=== PATIENT | male | born 1950 | race Caucasian/White ===

== ENCOUNTER 2016-11-18 11:04 | Emergency (ER) | payer OTHER ==
[~2016-11-18] VITALS: Ht 182.9 cm; Wt 80.0 kg
[~2016-11-18 11:04] MED LIST: CYCL-36 PO; DICL75 PO; Z.0.NO CURRENT MEDS
[2016-11-18 11:13] VITALS: BP 146/76; PULSE 76; RESP 20; TEMP 97.6; O2SAT 97
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
== END 2016-11-19 13:13 | disposition home or self-care (01) ==
LOC: NETRI 11:04 → EDTENT 11-19 13:13
DX: T22.10XA Burn of first degree of shoulder and upper limb, except wrist and hand, unspecified site, initial encounter (principal); W22.10XA Striking against or struck by unspecified automobile airbag, initial encounter
CPT/HCPCS: 99282